=== PATIENT | female | born 1990 | race Caucasian/White ===

== ENCOUNTER 2018-11-05 04:37 | Emergency (ER) | payer BC, OTHER ==
[~2018-11-05] VITALS: Ht 160 cm; Wt 81.8 kg
[2018-11-05 06:31] VITALS: BP 118/71
== END 2018-11-05 06:36 | disposition home or self-care (01) ==
LOC: EMS 04:38
DX: S63.601A Unspecified sprain of right thumb, initial encounter (principal); X50.9XXA Other and unspecified overexertion or strenuous movements or postures, initial encounter; Y93.89 Activity, other specified; Y92.89 Other specified places as the place of occurrence of the external cause; Y99.8 Other external cause status

== ENCOUNTER 2019-03-17 19:14 | Emergency (ER) | payer OTHER ==
[~2019-03-17] VITALS: Ht 160 cm; Wt 86.4 kg
[2019-03-17 20:40] VITALS: BP 121/83
== END 2019-03-17 20:40 | disposition home or self-care (01) ==
LOC: EMS 19:15
DX: S90.122A Contusion of left lesser toe(s) without damage to nail, initial encounter (principal); W22.8XXA Striking against or struck by other objects, initial encounter; Y93.89 Activity, other specified; Y92.89 Other specified places as the place of occurrence of the external cause; Y99.8 Other external cause status

== ENCOUNTER 2022-05-11 16:33 | Emergency (ER) | payer OTHER ==
[~2022-05-11] VITALS: Ht 160 cm; Wt 90.0 kg
[2022-05-11] MEDS ORDERED: IBUPROFEN 600 MG TABLET PO ONE (18:00)
[2022-05-11] MEDS ORDERED: IBUP-2070 PO (18:20)
[2022-05-11 19:16] VITALS: BP 139/87
== END 2022-05-11 19:21 | disposition home or self-care (01) ==
LOC: EMS 16:51
DX: S63.614A Unspecified sprain of right ring finger, initial encounter (principal); X58.XXXA Exposure to other specified factors, initial encounter; Y93.89 Activity, other specified; Y92.89 Other specified places as the place of occurrence of the external cause; Y99.8 Other external cause status
CPT/HCPCS: 99283